=== PATIENT | female | born 1975 | race African-American/Black ===

== ENCOUNTER → 2017-01-19 | Outpatient (CLI) | payer OTHER ==
[~2017-01-19] MED LIST: ASACOL; ATARAX 25MG25 MG/TAB PO; CANASA 1000MG1000 MG RC; FLUOCINONIDE0.05% TP; IRON325 M1 PO; IRON325 M2 PO; LEVAQUIN 750MG750 M1 PO; MOTRIN 400400 MG/TAB PO; PREDNISONE 5MG5 MG; PRENATAL1 TAB PO; RAYOS5 MG PO; TYLENOL 325MG325 MG PO; VITAMIN D32000 I1 PO; ZYRTEC ALLERGY10 MG PO
== END ==
LOC: COL.LAB 16:14
DX: Z76.89 Persons encountering health services in other specified circumstances (principal)

== ENCOUNTER → 2017-02-09 | Outpatient (CLI) | payer OTHER ==
[~2017-02-09] VITALS: Ht 165.1 cm; Wt 82.5 kg
[2017-02-09 16:51] LABS: BASO % 0.5 % (0.0-2.0); EOS # 0.2 (0.0-0.7); EOS % 2.3 % (0-4.0); GRAN # 3.9 (1.4-6.5); GRAN % 51.5 % (42.2-75.2); LYMPH # 2.8 (1.2-3.4); LYMPH % 37.7 % (20.0-51.0); MEAN CELL VOLUME 84 fl (80.0-100.0); MEAN CORPUSCULAR HGB CONC 33 g/dl (33.0-37.0); MEAN PLATELET VOLUME 10.1 fl (7.4-10.4); MONO # 0.6 (0.1-0.6); MONO % 7.7 % (1.7-9.3); PLATELET COUNT 296 K/mm3 (130-400); RED BLOOD COUNT 3.73 M/mm3 (4.10-5.30); WHITE BLOOD COUNT 7.5 K/mm3 (4.8-10.8)
[2017-02-09 16:53] LABS: HEMATOCRIT 31.2 % (37.0-47.0); HEMOGLOBIN 10.3 g/dl (12.5-16.0); MEAN CORPUSCULAR HEMOGLOBIN 28 pg (27.0-31.0)
[2017-02-09 17:13] LABS: BILIRUBIN,DIRECT 0.5 mg/dL (0.0-0.4); BILIRUBIN,TOTAL 0.7 mg/dL (0.0-1.0); TOTAL PROTEIN 7.2 gm/dL (6.4-8.2)
[2017-02-09 17:50] VITALS: BP 126/75; PULSE 77; TEMP 99.2
[2017-02-09 18:20] VITALS: BP 128/81; PULSE 69; TEMP 98.2
[2017-02-09 18:50] VITALS: BP 134/87; PULSE 75; TEMP 98.2
[2017-02-09 19:21] VITALS: BP 130/86; PULSE 71; TEMP 98.9
[2017-02-09 19:47] VITALS: BP 128/67; PULSE 76; TEMP 99
== END ==
LOC: EUO 16:00
PROVIDERS: Internal Medicine Gastroenterology
DX: K51.80 Other ulcerative colitis without complications (principal)
CPT/HCPCS: J1200; J1745; J7050

== ENCOUNTER → 2017-02-23 | Outpatient (CLI) | payer OTHER ==
[~2017-02-23] VITALS: Ht 165.1 cm; Wt 77.0 kg
[2017-02-23 15:32] LABS: MEAN CELL VOLUME 85 fl (80.0-100.0); MEAN CORPUSCULAR HGB CONC 32 g/dl (33.0-37.0); PLATELET COUNT 363 K/mm3 (130-400); RED BLOOD COUNT 3.97 M/mm3 (4.10-5.30); REDCELL DISTRIBUTION WIDTH-CV 14.1 % (11.5-14.5); WHITE BLOOD COUNT 6.6 K/mm3 (4.8-10.8)
[2017-02-23 15:42] LABS: HEMATOCRIT 33.6 % (37.0-47.0); HEMOGLOBIN 10.9 g/dl (12.5-16.0); MEAN CORPUSCULAR HEMOGLOBIN 27 pg (27.0-31.0)
[2017-02-23 16:18] VITALS: BP 134/71; PULSE 87; TEMP 98.7
[2017-02-23 16:45] VITALS: BP 126/77; PULSE 67; TEMP 98.1
[2017-02-23 17:15] VITALS: BP 135/77; PULSE 78; TEMP 98.5
[2017-02-23 17:45] VITALS: BP 142/79; PULSE 78; TEMP 98
[2017-02-23 18:15] VITALS: BP 138/77; PULSE 75; TEMP 98
== END ==
LOC: EUO 15:00
PROVIDERS: Internal Medicine Gastroenterology
DX: K51.80 Other ulcerative colitis without complications (principal)
CPT/HCPCS: J1200; J1745; J7050

== ENCOUNTER 2017-04-07 14:03 | Outpatient (CLI) | payer OTHER ==
[~2017-04-07] VITALS: Ht 165.1 cm; Wt 77.0 kg
[2017-04-07 14:32] LABS: MEAN CELL VOLUME 84 fl (80.0-100.0); MEAN CORPUSCULAR HGB CONC 33 g/dl (33.0-37.0); MEAN PLATELET VOLUME 9.8 fl (7.4-10.4); PLATELET COUNT 277 K/mm3 (130-400); RED BLOOD COUNT 4.22 M/mm3 (4.10-5.30); REDCELL DISTRIBUTION WIDTH-CV 13.9 % (11.5-14.5); WHITE BLOOD COUNT 6.4 K/mm3 (4.8-10.8)
[2017-04-07 14:33] LABS: HEMATOCRIT 35.6 % (37.0-47.0); HEMOGLOBIN 11.7 g/dl (12.5-16.0); MEAN CORPUSCULAR HEMOGLOBIN 28 pg (27.0-31.0)
[2017-04-07 14:44] LABS: ALBUMIN 4.1 gm/dL (3.5-5.0); BILIRUBIN,DIRECT 0.5 mg/dL (0.0-0.4); BILIRUBIN,TOTAL 0.8 mg/dL (0.0-1.0); TOTAL PROTEIN 7.7 gm/dL (6.4-8.2)
[2017-04-07 15:30] VITALS: BP 135/84; PULSE 77; TEMP 99.4
[2017-04-07 16:00] VITALS: BP 117/78; PULSE 78; TEMP 98
[2017-04-07 16:35] VITALS: BP 117/78; PULSE 77; TEMP 97.5
[2017-04-07 17:00] VITALS: BP 131/86; PULSE 73; TEMP 98
[2017-04-07 17:30] VITALS: BP 130/78; PULSE 77; TEMP 98.2
== END 2017-04-07 18:00 | disposition home or self-care (01) ==
LOC: EUO 14:03
PROVIDERS: Internal Medicine Gastroenterology
DX: K51.80 Other ulcerative colitis without complications (principal)
CPT/HCPCS: J1200; J1745; J7050

== ENCOUNTER 2017-06-04 13:50 | Outpatient (CLI) | payer OTHER ==
[~2017-06-04] VITALS: Ht 165.1 cm; Wt 85.0 kg
[2017-06-04 14:29] LABS: MEAN CELL VOLUME 86 fl (80.0-100.0); MEAN CORPUSCULAR HGB CONC 33 g/dl (33.0-37.0); PLATELET COUNT 264 K/mm3 (130-400); RED BLOOD COUNT 4.02 M/mm3 (4.10-5.30); REDCELL DISTRIBUTION WIDTH-CV 13.6 % (11.5-14.5); WHITE BLOOD COUNT 6.7 K/mm3 (4.8-10.8)
[2017-06-04 14:31] LABS: HEMATOCRIT 34.5 % (37.0-47.0); HEMOGLOBIN 11.4 g/dl (12.5-16.0); MEAN CORPUSCULAR HEMOGLOBIN 28 pg (27.0-31.0)
[2017-06-04 14:43] LABS: ALBUMIN 4.2 gm/dL (3.5-5.0); BILIRUBIN,TOTAL 0.8 mg/dL (0.0-1.0); TOTAL PROTEIN 7.5 gm/dL (6.4-8.2)
[2017-06-04 14:56] LABS: BILIRUBIN,DIRECT 0.4 mg/dL (0.0-0.4)
[2017-06-04 15:31] VITALS: BP 118/68; PULSE 74; TEMP 98.3
[2017-06-04 16:08] VITALS: BP 119/79; PULSE 74; TEMP 98
[2017-06-04 17:04] VITALS: BP 124/73; PULSE 65; TEMP 98.4
[2017-06-04 17:40] VITALS: BP 106/64; PULSE 72; TEMP 98.5
== END 2017-06-05 08:53 | disposition home or self-care (01) ==
LOC: EUO 13:50
PROVIDERS: Internal Medicine Gastroenterology
DX: K51.80 Other ulcerative colitis without complications (principal); Z79.899 Other long term (current) drug therapy
CPT/HCPCS: J1200; J1745; J7050

== ENCOUNTER 2017-08-17 13:48 | Outpatient (CLI) | payer OTHER ==
[~2017-08-17] VITALS: Ht 165.1 cm; Wt 87.4 kg
[2017-08-17 14:13] LABS: HEMATOCRIT 38.5 % (37.0-47.0); MEAN CELL VOLUME 89 fl (80.0-100.0); MEAN CORPUSCULAR HEMOGLOBIN 30 pg (27.0-31.0); MEAN CORPUSCULAR HGB CONC 34 g/dl (33.0-37.0); MEAN PLATELET VOLUME 11.5 fl (7.4-10.4); PLATELET COUNT 352 K/mm3 (130-400); RED BLOOD COUNT 4.33 M/mm3 (4.10-5.30); REDCELL DISTRIBUTION WIDTH-CV 13.3 % (11.5-14.5); WHITE BLOOD COUNT 7.1 K/mm3 (4.8-10.8)
[2017-08-17 15:04] VITALS: BP 137/83; PULSE 97; TEMP 97.8
[2017-08-17 15:30] VITALS: BP 149/89; PULSE 79; TEMP 97.4
[2017-08-17 15:44] LABS: ALBUMIN 4.2 gm/dL (3.5-5.0); BILIRUBIN,DIRECT 0.3 mg/dL (0.0-0.4); BILIRUBIN,TOTAL 0.4 mg/dL (0.0-1.0); TOTAL PROTEIN 7.7 gm/dL (6.4-8.2)
[2017-08-17 16:00] VITALS: BP 142/87; PULSE 86; TEMP 98.4
[2017-08-17 16:30] VITALS: BP 137/90; PULSE 73; TEMP 98.4
[2017-08-17 16:51] VITALS: BP 149/85; PULSE 67
[2017-08-17 17:14] VITALS: BP 132/77; PULSE 74; TEMP 98.2
== END 2017-08-17 17:14 | disposition home or self-care (01) ==
LOC: EUO 13:48
PROVIDERS: Internal Medicine Gastroenterology
DX: K51.90 Ulcerative colitis, unspecified, without complications (principal); Z79.899 Other long term (current) drug therapy
CPT/HCPCS: J1200; J7050; Q5102-ZB

== ENCOUNTER → 2018-07-23 | Outpatient (CLI) | payer BC | LOC: MC.RAD 07:00 | DX: Z12.31 Encounter for screening mammogram for malignant neoplasm of breast (principal) ==

== ENCOUNTER 2018-10-12 06:41 | Day surgery (SDC) | payer BC ==
[~2018-10-12] VITALS: Ht 165.1 cm; Wt 85.0 kg
[2018-10-12 08:00] VITALS: BP 115/70; PULSE 77; TEMP 98.6
[2018-10-12] MEDS ORDERED: RELPAX20 MG PO (08:09)
[2018-10-12] MEDS ORDERED: COZAAR 25MG25 MG/TAB PO (08:09)
[2018-10-12 10:25] VITALS: BP 124/79; PULSE 88; TEMP 97.9
[2018-10-12 10:40] VITALS: BP 111/76; PULSE 103
[2018-10-12 10:55] VITALS: BP 119/85; PULSE 72
== END 2018-10-12 11:15 | disposition home or self-care (01) ==
LOC: SDCO 06:41
DX: K51.00 Ulcerative (chronic) pancolitis without complications (principal); I10 Essential (primary) hypertension; D64.9 Anemia, unspecified
CPT/HCPCS: J2704; J7030

== ENCOUNTER → 2018-12-10 | Outpatient (CLI) | payer BC ==
[~2018-12-10] MED LIST changes: +COZAAR 25MG25 MG/TAB PO; +RELPAX20 MG PO
== END ==
LOC: COL.RAD 10:19
DX: N94.6 Dysmenorrhea, unspecified (principal)